=== PATIENT | male | born 1990 ===

== ENCOUNTER 2017-03-26 09:08 | Emergency (ER) | payer OTHER ==
--- NOTE | 2017-03-26 12:56 | UC ---
Adonay Banks Adam, scribed for Susi Sultana DO on 03/26/17 at 0935 . Laceration HPI - HPI Summary HPI Summary: Pt is a 27 year old male presenting with a finger laceration. He was cutting a bagel when the knife slid through and sliced his left index finger at approximately 09:00. He reports some pain and tingling around the site of the laceration. He was using a serrated bread knife which he states was clean prior to use and was not used for any meat or fish. He denies any fever, chills, N/V/D , abdominal pain, diaphoresis, or any other complaints. His job involves typing on a computer. Pt believes he is UTD with tetanus (approximately 2 years ago). He denies any PMHx. FMHx of HTN (father). - History Of Current Complaint Chief Complaint: UCLaceration Stated Complaint: FINGER LAC Time Seen by Provider: 03/26/17 09:32 Hx Obtained From: Patient Laceration Location: Finger - Left index Mechanism Of Injury: Sharp Trauma - Serrated bread knife Onset/Duration: Sudden Onset Severity: Mild Aggravating Factors: Movement - Allergies/Home Medications Allergies/Adverse Reactions: Allergies Allergy/AdvReac Type Severity Reaction Status Date / Time No Known Allergies Allergy Verified 03/26/17 09:22 Home Medications: Home Medications Ibuprofen TAB* [Advil TAB*] 03/26/17 [History] PMH/Surg Hx/FS Hx/Imm Hx Endocrine History Of: Denies: Diabetes, Thyroid Disease Cardiovascular History Of: Denies: Cardiac Disorders, Hypertension Respiratory History Of: Denies: COPD, Asthma GI/ History Of: Denies: Ulcer - Surgical History Surgical History: Yes Surgery Procedure, Year, and Place: pilonidial cyst - Family History Known Family History: Positive: Hypertension - Father - Social History Occupation: Employed Full-time Lives: With Family - Male friend Alcohol Use: Occasionally Substance Use Type: None Smoking Status (MU): Never Smoked Tobacco - Immunization History Most Recent Tetanus Shot: states within last 10 years Review of Systems Constitutional: Negative Skin: Other - Laceration to the left index finger Gastrointestinal: Negative Neurological: Other - Tingling in the left index finger All Other Systems Reviewed And Are Negative: Yes Physical Exam Triage Information Reviewed: Yes Appearance: Well-Appearing, No Pain Distress, Well-Nourished Vital Signs: Initial Vital Signs Temp 97.8 F 03/26/17 09:17 Pulse 82 03/26/17 09:17 Resp 16 03/26/17 09:17 BP 151/84 03/26/17 09:17 Pulse Ox 99 03/26/17 09:17 Vital Signs Reviewed: Yes Eyes: Positive: Conjunctiva Clear. Negative: Discharge ENT: Positive: Hearing grossly normal. Negative: Muffled/hoarse voice Neck exam: Normal Neck: Positive: Supple Respiratory: Positive: Chest non-tender, Lungs clear, Normal breath sounds, No respiratory distress Cardiovascular: Positive: RRR, No Murmur Abdominal Exam: Normal Musculoskeletal Exam: Normal Neurological: Positive: Alert, Muscle Tone Normal Psychological Exam: Normal Psychological: Positive: Age Appropriate Behavior Skin: Positive: Other - Laceration to left second finger (1cm) and very superficial lac to 5th finger(0.30cm) Laceration Repair - Laceration Repair 1 Description: Linear - Glued and taped Laceration Size After Repair: Length (cm) - 1 Modified For Repair: No Cleansing Completed Via Routine Prep: Yes Irrigation With Pressure Irrigation Device: Yes Closure Material: Skin Adhesive, SteriStrips 2 Description: Linear Laceration Size After Repair: Length (cm) - 0.30, Width (mm) - 1, Depth (mm) - 1 Modified For Repair: No Cleansing Completed Via Routine Prep: Yes Irrigation With Pressure Irrigation Device: Yes Closure Material: Skin Adhesive Laceration Course/Dx - Differential Dx - Laceration/Wound Provider Diagnoses: finger lac repair Discharge - Discharge Plan Condition: Stable Disposition: HOME Patient Education Materials: Finger Laceration (ED), Skin Adhesive Care (ED), Steristrips (ED) Referrals: Moses See MD [Primary Care Provider] - If Needed The documentation as recorded by the Adonay diaz Adam accurately reflects the service I personally performed and the decisions made by , Susi Sultana DO.
== END 2017-03-26 10:27 | disposition home or self-care (01) ==
LOC: UCEAST 09:08
DX: S61.211A Laceration without foreign body of left index finger without damage to nail, initial encounter (principal); W26.0XXA Contact with knife, initial encounter; Y93.G1 Activity, food preparation and clean up; Y92.9 Unspecified place or not applicable
CPT/HCPCS: 12001; 99201; G0463